=== PATIENT | female | born 1985 | race Caucasian/White ===

== ENCOUNTER → 2024-03-02 09:06 | Outpatient (REF) | payer BC, SELFPAY ==
[2024-03-02 10:12] LABS: % Basophils 1.6 % (0-2); % Eosinophils 7.7 % (0-6); % Immature Granulocytes 0.2 % (0-0.5); % Lymphocytes 37.3 % (20.5-51.1); % Neutrophils 48.2 % (42.2-75.2); Absolute Basophils 0.1 10^3/uL (0-0.2); Absolute Eosinophils 0.3 10^3/uL (0-0.7); Absolute Lymphocytes 1.6 10^3/uL (1.2-3.4); Absolute Monocytes 0.2 10^3/uL (0.1-0.6); Absolute Neutrophils 2.1 10^3/uL (1.4-6.5); Hemoglobin 13.1 g/dL (12.0-16.0); Mean Corp Hgb Conc. 32.8 g/dL (33.0-37.0); Mean Corpuscular Hgb 28.9 pg (27.0-31.0); Mean Corpuscular Volume 88.3 fL (81.0-99.0); Mean Platelet Volume 10.2 fL (7.4-10.4); Nucleated Red Blood Cells % 0 %; Platelet Count 215 10^3/uL (130-400); Red Blood Cell Count 4.53 10^6/uL (4.20-5.40); Red Cell Dist. Width 12.2 % (11.5-14.5); White Blood Cell Count 4.4 10^3/uL (4.8-10.8)
[2024-03-02 10:51] LABS: ALT (SGPT) 26 U/L (0-35); AST (SGOT) 33 U/L (14-36); Albumin 4.9 g/dl (3.5-5.0); Alkaline Phosphatase 49 U/L (38-126); Total Bilirubin 0.6 mg/dl (0.2-1.3); Total Protein 7.2 g/dl (6.3-8.2)
[2024-03-02 11:04] LABS: Erythrocyte Sed Rate 5 mm/hour (0-20)
[2024-03-02 13:16] LABS: Folate > 20.0 ng/ml (2.76-20); Vitamin B12 909 pg/ml (239-931)
[2024-03-03 12:17] LABS: CRP, Highly Sensitive 1.64 mg/L
[2024-03-03 22:58] LABS: ANA, IgG Reflex to HEp-2 None Detected (None Detected)
== END ==
LOC: REG 09:06
PROVIDERS: ATTENDING PHYSICIAN Nurse Practitioner Adult Health; FAMILY PHYSICIAN Family Medicine
DX: D72.819 Decreased white blood cell count, unspecified (principal)
CPT/HCPCS: 36415; 80076; 82607; 82746; 85025; 85652; 86038; 86141